=== PATIENT | female | born 1980 | race Caucasian/White ===

== ENCOUNTER → 2022-04-01 | Outpatient (CLI) | payer BC ==
[~2022-04-01] VITALS: Ht 177.8 cm; Wt 171.4 kg
[~2022-04-01] MED LIST: CHOL100055 PO; DOCU100C37 PO; FOLI1TAB24 PO; HYDR-3720 PO; IBUP-1780 PO; MAGN400C PO; OMEP-10 GT; OMEP20TA56 PO; OXYC-556 PO; OXYC1TAB87 PO; PREN1TAB25 PO; SPIR25TA5 PO; TIRZ15PE SQ
== END | disposition home or self-care (01) ==
LOC: PREOP 05:31
PROVIDERS: ATTEND Internal Medicine
DX: Z01.818 Encounter for other preprocedural examination (principal)

== ENCOUNTER 2022-04-09 07:19 | Day surgery (SDC) | payer BC ==
--- NOTE | 2022-04-05 15:46 | HISTORY AND PHYSICAL ---
COLONOSCOPY HISTORY AND PHYSICAL HISTORY OF PRESENT ILLNESS: The patient is a 42-year-old female referred by Dr. Kelly Lam for her first screening colonoscopy. She is at significantly higher risk than average that her father was diagnosed with colon cancer at age of 51 and she has had several uncles and at least one nephew who has been diagnosed with colon cancer as well relatively early. She denies any bowel habit change. She has lost 20 pounds after being started on Mounjaro. She denies bright red blood per rectum or melena. She reports that she feels well otherwise. She does have a history of insulin resistance. PAST SURGICAL HISTORY: Significant for umbilical hernia repair in 2016. She has had 3 C-sections, cholecystectomy and appendectomy and D and C, following one miscarriage. 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 She believes she has one second-degree relative that had acetylcholinesterase deficiency noted at the time of General Surgery. PHYSICAL EXAMINATION: GENERAL: Reveals a pleasant white female who weighs 422 pounds, blood pressure 120/62. CHEST: Clear to auscultation. CARDIOVASCULAR: Reveals regular rate and rhythm without murmur, S3, or S4. ABDOMEN: Soft, supple without mass, organomegaly, or tenderness. EXTREMITIES: No cyanosis, clubbing or edema. ASSESSMENT AND PLAN: The patient is being set up for her screening colonoscopy, deemed to be of higher than average risk due to father who was diagnosed with colon cancer at the age of 51 and several second-degree relatives diagnosed with colon cancer as well. Procedure is being performed at [facility] due to being above the weight limit for the [facility]. Thank you for the referral of this pleasant lady. Job ID: [id number] DocumentID: [id number] Dictated Date: 04/05/2022 15:03:09 [employer] Date: 04/05/2022 15:44:00 Dictated By: MAXWELL LOPEZ MD
[~2022-04-09] VITALS: Ht 177.8 cm; Wt 171.4 kg
[2022-04-09] MEDS ORDERED: LACTATED RINGERS 1,000 ML IV STA (07:21)
[2022-04-09 07:36] VITALS: BP 146/85
[2022-04-09] MEDS ORDERED: MIDAZOLAM 2 MG/2 ML (VERSED) VIAL ONE (07:37)
[2022-04-09] MEDS ORDERED: PROPOFOL INJECTION 50 ML IV ONE (07:37)
[2022-04-09] MEDS ORDERED: ONDANSETRON 4 MG/2 ML (SDV) Z0FRAN ONE (07:43)
[2022-04-09] MEDS ORDERED: SCOPOLAMINE 1.5 MG (TRANSDERM-SCOP) PATCH TOP ONE (07:45)
[2022-04-09] MEDS ORDERED: ONDANSETRON 4 MG/2 ML (SDV) Z0FRAN IV ONE (07:45)
[2022-04-09] MEDS ORDERED: FAMOTIDINE 20MG/2ML IV (PEPCID) IV ONE (07:45)
--- NOTE | 2022-04-09 07:51 | Pre-Op Note & Conscious Sedat ---
Pre-Operative Progress Note Date H&P Reviewed: Apr 09, 2022 Time H&P Reviewed: 07:51 History & Physical: H&P Reviewed, Patient Examed, No changes noted Pre-Op Diagnosis: screening Conscious Sedation Pre-Proced ASA Score 2 For ASA 3 and 4: Consider anesthesia and medical clearance. Also, for patients with a history of failed moderate sedation consider anesthesia. Airway Lungs Heart ASA score ASA 1: a normal healthy patient ASA 2: a patient with a mild systemic disease (mid diabetes, controlled hypertension, obesity ASA 3: a patient with a severe systemic disease that limits activity (angina, COPD, prior Myocardial infarction) ASA 4: a patient with an incapacitating disease that is a constant threat to life (CHF, renal failure) ASA 5: a moribund patient not expected to survive 24 hrs. (ruptured aneurysm) ASA 6: a declared brain- patient whose organs are being harvested. For emergent operations, add the letter E after the classification Mallampati Classification Grade 2 Sedation Plan Analgesia, Amnesia, Plan communicated to team members, Discussed options with patient/fam, Discussed risks with patient/fam The patient is an appropriate candidate to undergo the planned procedure, sedation, and anesthesia. The patient immediately re-assessed prior to indication. MAXWELL LOPEZ MD Apr 09, 2022 07:51
[2022-04-09 08:30] VITALS: BP 162/83
[2022-04-09 08:35] VITALS: BP 158/81
--- NOTE | 2022-04-09 08:36 | Progress Note-Post Operative ---
Post-Procedure Note Physician (s)/Energy Infrastructure Engineer (s) Physician MAXWELL LOPEZ MD Pre-Procedure Diagnosis Pre-Procedure Diagnosis: screening Post-Procedure Diagnosis Post-operative diagnosis: Prior to undergoing colonoscopy digital rectal evaluation was performed. Anal stricture tone was normal and the perianal reflexes intact. There is an anterior oriented perianal papilloma noted without evidence for internal or external hemorrhoids. No abnormalities were noted on digital inspection anal canal or distal rectal vault. The colonoscope was then inserted into the rectum and under direct visualization advanced to the cecum. The cecum was notified by indication of the ileocecal valve and cecal strap. Photographic documentation was obtained. A careful inspection was made as the colonoscope was withdrawn. Findings: As noted above perianal papilloma is noted oriented anteriorly without evidence for internal or external hemorrhoids. The rectum sigmoid colon descending colon splenic flexure were unremarkable an 8 mm sessile adenomatous appearing polyp was noted in the proximal transverse colon and another 6 mm similar appearing polyp was noted in the proximal ascending colon both were biopsied and ablated with hot forceps with no blood loss. The cecum was unremarkable. A/P 1. 2 adenomatous appearing polyps were noted and removed via hot forceps 1 from the proximal transverse colon and the other from the proximal ascending colon with an otherwise unremarkable colonoscopy to the cecum under good prep conditions. Colonoscopy was performed at [facility] as the patient did not qualify for [facility] weight limit.Considering family history as long as there is no evidence for dysplasia on histopathology we will advocate repeat surveillance colonoscopy in 1 year. I thank you for the furl this pleasant lady. Sincerely, Maxwell Lopez MD CC: MAXWELL Cosby MD Apr 09, 2022 08:36
[2022-04-09 09:00] VITALS: BP 158/81
[2022-04-09 09:28] VITALS: BP 158/81
--- NOTE | 2022-04-09 11:47 | Anesthesia-General Post-Op ---
MAC Patient Condition Mental Status/LOC: Same as Preop Cardiovascular: Satisfactory Nausea/Vomiting: Absent Respiratory: Satisfactory Pain: Controlled Complications: Absent Post Op Complications Complications None Follow Up Care/Instructions Patient Instructions None needed. Anesthesiology Discharge Order Discharge Order Patient is doing well, no complaints, stable vital signs, no apparent adverse anesthesia problems. No complications reported per nursing. MICHELLE POLANCO CRNA Apr 09, 2022 11:47
== END 2022-04-09 09:27 | disposition home or self-care (01) ==
LOC: ENDO 07:19
PROVIDERS: ATTEND Internal Medicine
DX: Z12.11 Encounter for screening for malignant neoplasm of colon (principal); D12.2 Benign neoplasm of ascending colon; D12.3 Benign neoplasm of transverse colon; D23.5 Other benign neoplasm of skin of trunk; Z80.0 Family history of malignant neoplasm of digestive organs; E66.01 Morbid (severe) obesity due to excess calories; Z68.43 Body mass index [BMI] 50.0-59.9, adult
CPT/HCPCS: 84703